=== PATIENT | male | born 2000 | race African-American/Black ===

== ENCOUNTER 2021-11-07 05:42 | Emergency (ER) | payer MEDICARE, MEDICAID, SELFPAY ==
--- NOTE | 2021-11-07 06:02 | ED.C_ITS ---
HPI - Psych General: Chief Complaint: Psychiatric Symptoms Stated Complaint: SI Time Seen by Provider: 11/07/21 06:01 History of Present Illness: Mr. Mccauley is a 21-year-old male with history of depression who presents to the emergency department due to suicidal ideation. He reports being out of medication (Abilify, trazodone, Zoloft) for a few days and starting early this morning began having suicidal thoughts. He considered a number of ways to kill himself however did not have a definitive plan. He does have a history of suicide attempts and last psychiatric hospitalization was a few months ago. With his worsening depression he endorses binge eating or try not to eat, difficulty with sleep, self-isolation. Overall course of symptoms has worsened. Intensity is moderate to severe. He does feel benefit from prior psychiatric hospitalizations and does feel that he needs inpatient management at this point. Otherwise denies medical complaints. No other specific changes in health, exacerbating, or alleviating factors identified. Onset (ago): hour(s) History of same: Yes Context: not taking psychiatric medications Associated psychiatric symptoms: depression and suicidal ideation If self harm: admits thoughts of self harm Review of Systems General: Reports: 10 or more systems reviewed and unremarkable except in HPI and below PFSH ED PFSH: Medical History (Updated 11/07/21 @ 09:14 by Law Avalos MD) Depression History of deviated nasal septum Surgical History (Updated 11/07/21 @ 06:17 by Law Avalos MD) History of nasal surgery Social History (Updated 11/07/21 @ 06:18 by Law Avalos MD) Smoking and tobacco status: never smoked Alcohol intake: never Substance/Drug Use: never Physical Exam Const: COMMON NORMALS: alert GENERAL APPEARANCE: cooperative and well developed HENMT: COMMON NORMALS: normocephalic and atraumatic HEAD & SCALP: normocephalic and atraumatic Eye: COMMON NORMALS: conjunctivae normal CONJUNCTIVA: Yes conjunctivae normal SCLERA: sclerae normal Neck/C-Spine: COMMON NORMALS: supple GENERAL: Yes trachea midline Resp: COMMON NORMALS: normal respiratory effort and clear to auscultation bilaterally EFFORT & INSPECTION: Yes able to speak in complete sentences AUSCULTATION: clear to auscultation bilaterally Cardio: COMMON NORMALS: regular rate and regular rhythm RATE: regular rate RHYTHM: regular rhythm GI: COMMON NORMALS: Soft to palpation PALPATION: Yes Soft to palpation and No Tenderness to palpation present (GI) PERCUSSION: normal to percussion Extremity: GENERAL: Yes normal exam except as noted and No edema Neuro: COMMON NORMALS: moves all extremities SENSORIUM/ORIENTATION: Yes alert and No Orientation impaired Psych: THOUGHT CONTENT: Yes Suicidality present Course ED course: - Patient was seen and evaluated by me at bedside - Vital signs obtained - Initial evaluation notable for exam as above, depressed affect - Labs personally interpreted by me - Labs notable for no leukocytosis, normal hemoglobin. Metabolic panel without acute derangement. Toxic ingestions negative. - Based on ED evaluation at this point there is no obvious condition that would preclude the patient from inpatient management of psychiatric concerns. - Patient accepted by psychiatry service - Subsequently patient expressed desire to leave as he felt improved after getting some rest. He was evaluated by Dr. Reynoso of the psychiatry service. Patient to be discharged with refill of medications. Return precautions given. Note: Click bubbles or prepopulated ellis in note writing are used for assistance with data collection and billing and are inherently more limited than narrative and other text portions of this note. Please use narrative for additional clinical history and defer to narrative/free test for any case of contradictory information. If information appears in only free text or click bubble it stephany uld be considered present or absent as reported. Please contact note customs entry writer for clarifications of clinical information or contradictory information. MDM is a brief summary, contradictory or erroneous seeming information should be clarified and full note should be reviewed. Vital Signs: Vital signs: Vital Signs Temperature 98.4 F 11/07/21 06:04 Pulse Rate 92 11/07/21 09:46 Respiratory Rate 14 11/07/21 09:46 Blood Pressure 155/94 11/07/21 09:46 Pulse Oximetry 98 11/07/21 09:46 Oxygen Delivery Me thod 11/07/21 06:04 MDM - Psych Medical Decision Making 21-year-old male with history of depression presenting with worsening depression and suicidal ideation in the context of not having medications. No acute abnormality requiring intervention on labs. Initially patient desired inpatient management however changed his mind. Patient was evaluated by Dr. Reynoso of the psychiatry service and satisfactory for outpatient management with medications refilled. Medical Records I reviewed the patient's medical records. Lab Data I reviewed the patient's lab results. : 11/07/21 06:00 11/07/21 06:00 Laboratory Results WBC 9.2 10^3/uL (4.5-13.0) 11/07/21 06:00 RBC 5.54 10^6/uL (4.1-5.3) H 11/07/21 06:00 Hgb 15.7 g/dL (11.7-16.6) 11/07/21 06:00 Hct 47.3 % (42.0-52.0) 11/07/21 06:00 MCV 85.4 fl (80-94) 11/07/21 06:00 MCH 28.3 pg (28.0-34.0) 11/07/21 06:00 MCHC 33.2 g/dL (30.0-36.0) 11/07/21 06:00 RDW 12.5 % (12.1-15.1) 11/07/21 06:00 Plt Count 227 10^3/cmm (130-400) 11/07/21 06:00 MPV 12.1 fL (7.4-10.4) H 11/07/21 06:00 Neut % (Auto) 62.4 % 11/07/21 06:00 Lymph % (Auto) 29.3 % 11/07/21 06:00 [place] % (Auto) 6.9 % 11/07/21 06:00 Eos % (Auto) 0.9 % 11/07/21 06:00 Baso % (Auto) 0.4 % 11/07/21 06:00 Neut # (Auto) 5.72 10^3/uL (1.8-8.0) 11/07/21 06:00 Lymph # (Auto) 2.7 10^3/uL (1.5-6.5) 11/07/21 06:00 [place] # (Auto) 0.6 10^3/uL (0.2-0.9) 11/07/21 06:00 Eos # (Auto) 0.1 10^3/uL (0.0-0.8) 11/07/21 06:00 Baso # (Auto) 0.0 10^3/uL (0.0-0.1) 11/07/21 06:00 Nucleated RBC % (auto) 0 % 11/07/21 06:00 Nucleated RBCs # 0.0 /100WBC 11/07/21 06:00 Sodium 139 mmol/L (136-145) 11/07/21 06:00 Potassium 3.5 mmol/L (3.5-5.1) 11/07/21 06:00 Chloride 102 mmol/L (98-107) 11/07/21 06:00 Carbon Dioxide 23 mmol/L (22-29) 11/07/21 06:00 Anion Gap 17.5 (5-19) 11/07/21 06:00 BUN 8 mg/dL (6-20) 11/07/21 06:00 Creatinine 0.7 mg/dL (0.7-1.2) 11/07/21 06:00 GFR Calculation 174.0 mL/min (90-130) H 11/07/21 06:00 Glucose 116 mg/dL (65-115) H 11/07/21 06:00 Calculated Osmolality 287 mOsm/kg (285-295) 11/07/21 06:00 Calcium 9.8 mg/dL (8.5-10.5) 11/07/21 06:00 Total Bilirubin 0.4 mg/dL (0.15-1.2) 11/07/21 06:00 AST 16 U/L (0-40) 11/07/21 06:00 ALT 14 U/L (0-41) 11/07/21 06:00 Alkaline Phosphatase 97 IU/L (40-130) 11/07/21 06:00 Total Protein 7.5 g/dL (6.6-8.7) 11/07/21 06:00 Albumin 4.8 g/dL (3.5-5.2) 11/07/21 06:00 Globulin 2.7 g/dL (1.3-4.6) 11/07/21 06:00 Salicylates < 0.3 mg/dL (3-10) L 11/07/21 06:00 Urine Opiates Screen Negative ng/mL (Negative) 11/07/21 05:49 Acetaminophen < 5.0 ug/mL (10-30) L 11/07/21 06:00 Ur Barbiturates Screen Negative ng/mL (Negative) 11/07/21 05:49 Ur Phencyclidine Scrn Negative ng/mL (Negative) 11/07/21 05:49 Ur Amphetamines Screen Negative ng/mL (Negative) 11/07/21 05:49 U Benzodiazepines Scrn Negative ng/mL (Negative) 11/07/21 05:49 Urine Cocaine Screen Negative ng/mL (Negative) 11/07/21 05:49 U Marijuana (THC) Screen Negative ng/mL (Negative) 11/07/21 05:49 Ethyl Alcohol < 10 mg/dL (0-10) 11/07/21 06:00 Discharge Plan Discharge Patient Disposition: Home Clinical Impression: Depression Condition: Stable Prescriptions: Continued acetaminophen 500 mg Tablet 1,000 mg PO Q6H PRN (Reason: Pain) hydroxyzine pamoate 50 mg capsule 50 mg PO Q6H PRN (Reason: Anxiety) 30 Days Qty: 40 1RF sertraline 50 mg tablet 50 mg PO BEDTIME 30 Days Qty: 30 1RF aripiprazole 15 mg tablet 15 mg PO QAM 30 Days Qty: 30 1RF trazodone 150 mg tablet 150 mg PO BEDTIME 30 Days Qty: 30 1RF Discharge Orders: Discharge ED (Routine); Ordered 11/07/21 Ordered By: Law Avalos Discharge Diet: Usual diet Discharge Activity: Increase activity as tolerated Patient Instructions: Depression (ED) Activity Restrictions/Additional Instructions: Thank you for visiting the emergency department. You were seen and evaluated for worsening depression. This is likely related to not having your medications. You were offered inpatient management however you are expressing desire to leave. After discussion with the psychiatry service I will refill your medications. Please follow-up with your primary care provider. Please establish with a primary care provider if you do not have 1. Please establish with a psychiatric care provider if you do not have 1. Return to the emergency department for worsening depression, thoughts of harming yourself or others, or anything else that you are concerned about and feel needs emergency department evaluation. Coding Level of Care Code ED Contour Band Saw Operator Vertical for Flex [place] Exam Comprehensive
[2021-11-07 06:04] VITALS: BP 132/84; PULSE 95; RESP 16; TEMP 36.9; O2SAT 95; BMI 35.4
[2021-11-07 06:06] LABS: Basophils % 0.4 %; Eosinophils # 0.1 10^3/uL (0.0-0.8); Eosinophils % 0.9 %; Hematocrit 47.3 % (42.0-52.0); Hemoglobin 15.7 g/dL (11.7-16.6); Lymphocytes # 2.7 10^3/uL (1.5-6.5); Lymphocytes % 29.3 %; Mean Corpuscular HGB Conc 33.2 g/dL (30.0-36.0); Mean Corpuscular Hemoglobin 28.3 pg (28.0-34.0); Mean Corpuscular Volume 85.4 fl (80-94); Mean Platelet Volume 12.1 fL (7.4-10.4); Monocytes # 0.6 10^3/uL (0.2-0.9); Monocytes % 6.9 %; Neutrophils # 5.72 10^3/uL (1.8-8.0); Neutrophils % 62.4 %; Nucleated Red Blood Cells % 0 %; Platelet Count 227 10^3/cmm (130-400); Red Blood Count 5.54 10^6/uL (4.1-5.3); Red Cell Distribution Width 12.5 % (12.1-15.1); White Blood Count 9.2 10^3/uL (4.5-13.0)
[2021-11-07 06:34] LABS: Amphetamines Screen Urine Negative (Negative); Barbiturates Screen Urine Negative (Negative); Benzodiazepines Screen Urine Negative (Negative); Cocaine Screen Urine Negative (Negative); Opiate Screen Urine Negative (Negative); PCP Screen Urine Negative (Negative); THC Screen Urine Negative (Negative)
[2021-11-07 06:54] LABS: Alanine Aminotransferase 14 U/L (0-41); Albumin Level 4.8 g/dL (3.5-5.2); Alkaline Phosphatase 97 IU/L (40-130); Anion Gap 17.5 (5-19); Aspartate Amino Transferase 16 U/L (0-40); Blood Urea Nitrogen 8 mg/dL (6-20); Calcium 9.8 mg/dL (8.5-10.5); Carbon Dioxide 23 mmol/L (22-29); Chloride 102 mmol/L (98-107); Globulin 2.7 g/dL (1.3-4.6); Glucose 116 mg/dL (65-115); Osmolality Calculated 287 mOsm/kg (285-295); Potassium 3.5 mmol/L (3.5-5.1); Sodium 139 mmol/L (136-145); Total Bilirubin 0.4 mg/dL (0.15-1.2); Total Protein 7.5 g/dL (6.6-8.7)
[2021-11-07 07:00] LABS: Acetaminophen < 5.0 ug/mL (10-30); Alcohol Level < 10 mg/dL (0-10); Salicylate < 0.3 mg/dL (3-10)
--- NOTE | 2021-11-07 07:26 | PC.NURSE ---
Report recieved from table games shift manager RN. Patient ambulatory in room stating he feels better and would like to be discharged. The RN spoke with ERP waiting for further instructions on plan of care.
[2021-11-07 09:46] VITALS: BP 155/94; PULSE 92; RESP 14; O2SAT 98
== END 2021-11-07 09:49 | disposition home or self-care (01) ==
PROVIDERS: Emergency Medicine; Emergency Provider Emergency Medicine
DX: F32.A Depression, unspecified (principal)
CPT/HCPCS: 80053; 80306; 80307; 85025; 99283